=== PATIENT | male | born 1960 | race Caucasian/White ===

== ENCOUNTER 2016-11-09 18:48 | Inpatient (IN) | payer OTHER ==
[~2016-11-09] VITALS: Ht 180.3 cm; Wt 87.5 kg
[2016-11-09] MEDS ORDERED: SODIUM CHLORIDE FLUSH 10ML SYR IVF ONE (19:30)
[2016-11-09 19:37] LABS: ASPARTATE AMINO TRANSFERASE 20 U/L (15-37); BLOOD UREA NITROGEN 31 mg/dL (7-18)
[2016-11-09 19:52] LABS: IS PT STATUS REG ER OR PRE ER? YES
[2016-11-09] MEDS ORDERED: HEPARIN 5,000 UNITS/ML, 1ML IV ONE (20:30)
[2016-11-09] MEDS ORDERED: HEPARIN 25,000 UNITS/500ML PMX 500 ML IV PRN (20:30)
[2016-11-09] MEDS ORDERED: HEPARIN 5,000 UNITS/ML, 1ML IV PRN (20:30)
[2016-11-09] MEDS ORDERED: HEPARIN 5,000 UNITS/ML, 1ML ONE (20:54)
[2016-11-09] MEDS ORDERED: HEPARIN 25,000 UNITS/500ML PMX 500 ML ONE (20:55)
[2016-11-09] MEDS ORDERED: LISI1TAB3 PO (21:08)
[2016-11-09] MEDS ORDERED: fentanyl patch TD (21:08)
[2016-11-09] MEDS ORDERED: ONDA-39 PO (21:08)
[2016-11-09] MEDS ORDERED: AMLO5TAB2 PO (21:08)
[2016-11-09] MEDS ORDERED: DEXA2TAB PO (21:08)
[2016-11-09] MEDS ORDERED: LACT1CAP35 PO (21:08)
[2016-11-09] MEDS ORDERED: NAPR500T3 PO ×2 (21:08)
[2016-11-09] MEDS ORDERED: POLY17PO5 PO (21:08)
[2016-11-09] MEDS ORDERED: HYDR-882 PO (21:08)
[2016-11-09] MEDS ORDERED: [UNRECOGNIZED DRUG - OTHER] PO (21:08)
[2016-11-09] MEDS ORDERED: HEPARIN wt. based STROKE protocol MC PRN (21:30)
[2016-11-09] MEDS: ONDANSETRON 4 MG TABLET PO SCH (21:30)
[2016-11-09] MEDS: FENTANYL 25 MCG PATCH TD SCH (21:30)
[2016-11-09] MEDS: FENTANYL REMOVE PATCH NOTE XX SCH (23:00)
[2016-11-09] MEDS: DEXAMETHASONE 1 MG TABLET PO SCH (23:37)
[2016-11-10 02:00] VITALS: BP 121/74
[2016-11-10 02:02] VITALS: BP 130/70
[2016-11-10 03:32] LABS: BLOOD UREA NITROGEN 29 mg/dL (7-18)
[2016-11-10] MEDS: ONDANSETRON 4 MG TABLET PO SCH ×4 (06:00→20:42)
[2016-11-10 06:58] VITALS: BP 119/69
[2016-11-10] MEDS: POLYETHYLENE GLYCOL 17 GM PACKET PO SCH ×2 (08:28→20:42)
[2016-11-10] MEDS: AMLODIPINE 5 MG TABLET PO SCH (08:28)
[2016-11-10] MEDS: LACTOBACILLUS CHEW TABLET PO SCH (08:28)
[2016-11-10] MEDS: DEXAMETHASONE 1 MG TABLET PO SCH ×2 (08:28→20:42)
[2016-11-10 16:15] VITALS: BP 116/70
[2016-11-10 20:00] VITALS: BP 116/73
[2016-11-10] MEDS: HEPARIN 25,000 UNITS/500ML PMX 500 ML IV PRN (20:41)
[2016-11-10] MEDS: FAMOTIDINE 20 MG TABLET PO SCH (20:42)
[2016-11-11 02:00] VITALS: BP 148/86
[2016-11-11] MEDS: ONDANSETRON 4 MG TABLET PO SCH ×4 (06:00→20:31)
[2016-11-11 07:02] LABS: ASPARTATE AMINO TRANSFERASE 16 U/L (15-37); BLOOD UREA NITROGEN 22 mg/dL (7-18)
[2016-11-11 07:05] VITALS: BP 131/80
[2016-11-11] MEDS: AMLODIPINE 5 MG TABLET PO SCH (09:13)
[2016-11-11] MEDS: DEXAMETHASONE 1 MG TABLET PO SCH ×2 (09:13→20:30)
[2016-11-11] MEDS: POLYETHYLENE GLYCOL 17 GM PACKET PO SCH ×2 (09:13→20:30)
[2016-11-11] MEDS: LACTOBACILLUS CHEW TABLET PO SCH (09:13)
[2016-11-11 12:14] VITALS: BP 119/73
[2016-11-11] MEDS: HEPARIN 25,000 UNITS/500ML PMX 500 ML IV PRN (15:41)
[2016-11-11 20:00] VITALS: BP 131/76
[2016-11-11] MEDS: FAMOTIDINE 20 MG TABLET PO SCH (20:31)
[2016-11-12 02:00] VITALS: BP 148/84
[2016-11-12 02:29] LABS: BLOOD UREA NITROGEN 25 mg/dL (7-18)
[2016-11-12] MEDS: ONDANSETRON 4 MG TABLET PO SCH ×3 (06:00→16:00)
[2016-11-12 06:25] VITALS: BP 120/82
[2016-11-12] MEDS: HEPARIN 25,000 UNITS/500ML PMX 500 ML IV PRN (07:51)
[2016-11-12] MEDS: POLYETHYLENE GLYCOL 17 GM PACKET PO SCH (08:08)
[2016-11-12] MEDS: FENTANYL REMOVE PATCH NOTE XX SCH (08:08)
[2016-11-12] MEDS: FENTANYL 25 MCG PATCH TD SCH (08:09)
[2016-11-12] MEDS: AMLODIPINE 5 MG TABLET PO SCH (08:09)
[2016-11-12] MEDS: LACTOBACILLUS CHEW TABLET PO SCH (08:09)
[2016-11-12] MEDS: DEXAMETHASONE 1 MG TABLET PO SCH (08:09)
[2016-11-12 12:05] VITALS: BP 117/79
[2016-11-12] MEDS ORDERED: ENOXAPARIN 80 MG/0.8 ML SQ SCH (17:00)
[2016-11-12] MEDS ORDERED: ENOX80SY4 SQ (17:41)
== END 2016-11-12 18:45 | disposition home or self-care (01) | DRG 175 ==
LOC: ED 21:35 → EDIP 22:10 → 4WST 22:22
PROVIDERS: ADMIT Internal Medicine; ATTEND Internal Medicine
DX: I26.99 Other pulmonary embolism without acute cor pulmonale (principal); E43 Unspecified severe protein-calorie malnutrition; C34.32 Malignant neoplasm of lower lobe, left bronchus or lung; C78.7 Secondary malignant neoplasm of liver and intrahepatic bile duct; C79.31 Secondary malignant neoplasm of brain; C79.51 Secondary malignant neoplasm of bone; D68.69 Other thrombophilia; E87.1 Hypo-osmolality and hyponatremia; I82.431 Acute embolism and thrombosis of right popliteal vein; I82.432 Acute embolism and thrombosis of left popliteal vein; C78.89 Secondary malignant neoplasm of other digestive organs; D63.8 Anemia in other chronic diseases classified elsewhere; R74.8 Abnormal levels of other serum enzymes; D69.6 Thrombocytopenia, unspecified; D72.829 Elevated white blood cell count, unspecified; I10 Essential (primary) hypertension; I35.1 Nonrheumatic aortic (valve) insufficiency; I77.819 Aortic ectasia, unspecified site; Z66 Do not resuscitate; Z80.1 Family history of malignant neoplasm of trachea, bronchus and lung; Z80.8 Family history of malignant neoplasm of other organs or systems; Z68.26 Body mass index [BMI] 26.0-26.9, adult; Z92.3 Personal history of irradiation; Z88.5 Allergy status to narcotic agent; Z79.899 Other long term (current) drug therapy
CPT/HCPCS: 36415; 70450; 71010; 71275; 80048; 80053; 84484; 85025; 85520; 85610; 93005; 93306; 93970; 96365; 96376; J1644; J1650

== ENCOUNTER 2017-09-21 12:34 | Inpatient (IN) | payer OTHER ==
[~2017-09-21] VITALS: Ht 182.9 cm; Wt 99.8 kg
[2017-09-21] VITALS (7 sets, daily range): BP systolic 105–124; BP diastolic 66–80
[~2017-09-21 12:34] MED LIST: AMLO5TAB2 PO; DEXA2TAB PO; ENOX80SY4 SQ; HYDR-882 PO; LACT1CAP35 PO; LEVO750T26 PO; LISI1TAB3 PO; NAPR-685 PO; ONDA4TAB12 PO; POLY17PO5 PO; [UNRECOGNIZED DRUG - OTHER] PO; fentanyl patch TD
[2017-09-21 13:25] LABS: MEAN CORPUSCULAR HEMOGLOBIN 27.3 pg (27.5-34.5); MEAN CORPUSCULAR HGB CONC 32.9 g/dL (33.2-36.2); MEAN CORPUSCULAR VOLUME 82.9 fL (81-97); MEAN PLATELET VOLUME 7.9 fL (7.4-10.4); PLATELET COUNT 293 x10^3/uL (130-400); RED BLOOD COUNT 2.24 x10^6/uL (4.38-5.82); RED CELL DISTRIBUTION WIDTH 22.5 % (9.4-14.8)
[2017-09-21 13:28] LABS: INTERNATIONAL NORMALIZED RATIO 1.3 (0.93-1.1); PROTHROMBIN TIME 13.4 Seconds (9.6-11.5)
[2017-09-21] MEDS ORDERED: SODIUM CHLORIDE FLUSH 10ML SYR IVF ONE (13:30)
[2017-09-21] MEDS ORDERED: SODIUM CHLORIDE 0.9% 1,000ML IVBOLUS ONE (13:30)
[2017-09-21 13:31] LABS: ALANINE AMINOTRANSFERASE 16 U/L (12-78); ALBUMIN 1.7 g/dL (3.4-5.0); ANION GAP 7 mmol/L (5-15); CALCIUM 7.1 mg/dL (8.5-10.1); CHLORIDE 108 mmol/L (98-107); CREATININE 1.05 mg/dL (0.7-1.3)
[2017-09-21 13:36] LABS: ALKALINE PHOSPHATASE 123 U/L (45-117); BILIRUBIN,TOTAL 0.3 mg/dL (0.2-1.0); TOTAL PROTEIN 6.3 g/dL (6.4-8.2); TROPONIN I < 0.015 ng/mL (0.000-0.045)
[2017-09-21 13:57] LABS: MD YES
[2017-09-21 13:59] LABS: BAND#(MANUAL) 0.99 x10^3/uL; BANDS%(MANUAL) 7 % (0-7); LYMPH#(MANUAL) 0.28 x10^3/uL (1-3.4); LYMPHS% (MANUAL) 2 % (22-44); MONOS#(MANUAL) 0.14 x10^3/uL (0.3-2.7); MONOS% (MANUAL) 1 % (2-9); SEG#(MANUAL) 12.69 x10^3/uL (1.8-6.8); SEGS% (MANUAL) 90 % (42-75)
[2017-09-21 14:01] LABS: ACANTHOCYTES 1+; ANISOCYTOSIS 1+; OVALOCYTES 1+; POLYCHROMASIA 1+; SPHEROCYTES 1+
[2017-09-21 14:02] LABS: <PLATELET ESTIMATE> ADEQUATE; <PLT MORPHOLOGY> NORMAL PLT MORPH; SCHISTOCYTES 1+; TOXIC GRAN 1+
[2017-09-21] MEDS ORDERED: BISACODYL 10 MG SUPP PR PRN (15:00)
[2017-09-21] MEDS ORDERED: ONDANSETRON 2MG/ML, 2ML IVPB PRN (15:00)
[2017-09-21] MEDS ORDERED: PHARMACY MAY ADJ FOR RENAL FX MC PRN (15:00)
[2017-09-21] MEDS ORDERED: FAMOTIDINE 20 MG/2 ML IV SCH (15:00)
[2017-09-21] MEDS ORDERED: DOCUSATE 100 MG CAPSULE PO PRN (15:00)
[2017-09-21] MEDS ORDERED: AZITHROMYCIN 500 MG in SODIUM CHLORIDE 0.9% 250 ML IV SCH (15:00)
[2017-09-21] MEDS ORDERED: GUAIFENESIN/DM 200-20MG, 10ML UDC PO PRN (15:00)
[2017-09-21] MEDS ORDERED: TEMAZEPAM 15 MG CAPSULE PO PRN (15:00)
[2017-09-21] MEDS ORDERED: SENNA/DOCUSATE TABLET PO PRN (15:00)
[2017-09-21] MEDS ORDERED: ALPR0.5T6 PO (16:08)
[2017-09-21] MEDS ORDERED: APIX5TAB PO (16:10)
[2017-09-21] MEDS ORDERED: CALC-545 PO (16:10)
[2017-09-21] MEDS ORDERED: HYDR-3241 PO (16:12)
[2017-09-21 20:12] LABS: MICROSCOPIC NOT IND
[2017-09-21 20:14] LABS: CULTURE INDICATED? NO
[2017-09-21] MEDS: SODIUM CHLORIDE 0.9% 1,000 ML IV SCH (20:31)
[2017-09-21] MEDS: CEFTRIAXONE PMX 1GM/50ML 50 ML IVPB SCH (20:31)
[2017-09-21] MEDS: APIXABAN 5 MG TABLET PO SCH (21:07)
[2017-09-22 01:09] VITALS: BP 104/66
[2017-09-22 01:45] VITALS: BP 103/63
[2017-09-22 05:09] LABS: ALBUMIN 1.6 g/dL (3.4-5.0); ANION GAP 7 mmol/L (5-15); CHLORIDE 110 mmol/L (98-107)
[2017-09-22 05:14] LABS: ALANINE AMINOTRANSFERASE 13 U/L (12-78); ALKALINE PHOSPHATASE 121 U/L (45-117); BILIRUBIN,TOTAL 0.4 mg/dL (0.2-1.0); CREATININE 0.83 mg/dL (0.7-1.3); TOTAL PROTEIN 6.3 g/dL (6.4-8.2)
[2017-09-22 05:16] LABS: MEAN CORPUSCULAR HGB CONC 33.4 g/dL (33.2-36.2); MEAN CORPUSCULAR VOLUME 83.8 fL (81-97); MEAN PLATELET VOLUME 7.8 fL (7.4-10.4); PLATELET COUNT 291 x10^3/uL (130-400); RED BLOOD COUNT 2.77 x10^6/uL (4.38-5.82); RED CELL DISTRIBUTION WIDTH 20.6 % (9.4-14.8)
[2017-09-22 05:49] LABS: MD YES
[2017-09-22 05:51] LABS: ANISOCYTOSIS 1+; BAND#(MANUAL) 0.91 x10^3/uL; BANDS%(MANUAL) 6 % (0-7); EOS#(MANUAL) 0.45 x10^3/uL (0.0-0.4); EOS% (MANUAL) 3 % (1-7); LYMPH#(MANUAL) 0.76 x10^3/uL (1-3.4); LYMPHS% (MANUAL) 5 % (22-44); METAMYELOCYTES# (MANUAL) 0.15 x10^3/uL (0-0); METAMYELOCYTES% (MANUAL) 1 % (0-1); MONOS#(MANUAL) 0.45 x10^3/uL (0.3-2.7); MONOS% (MANUAL) 3 % (2-9); MYELOCYTES# (MANUAL) 0.15 x10^3/uL (0-0); MYELOCYTES% (MANUAL) 1 % (0-0); NRBC % (MANUAL) 1 % (0-1); POLYCHROMASIA 1+; SEG#(MANUAL) 12.23 x10^3/uL (1.8-6.8); SEGS% (MANUAL) 81 % (42-75)
[2017-09-22 05:52] LABS: ACANTHOCYTES 1+; OVALOCYTES 1+; SCHISTOCYTES 1+; SPHEROCYTES 1+; TOXIC GRAN 1+
[2017-09-22 05:54] LABS: <PLATELET ESTIMATE> ADEQUATE; <PLT MORPHOLOGY> NORMAL PLT MORPH
[2017-09-22 05:55] LABS: ECHINOCYTES 1+
[2017-09-22] MEDS: SODIUM CHLORIDE 0.9% 1,000 ML IV SCH ×3 (06:48→18:06)
[2017-09-22 07:10] VITALS: BP 118/72
[2017-09-22] MEDS: FAMOTIDINE 20 MG TABLET PO SCH ×2 (08:06→20:54)
[2017-09-22] MEDS: APIXABAN 5 MG TABLET PO SCH (08:06)
[2017-09-22 14:46] VITALS: BP 110/70
[2017-09-22 19:03] LABS: OCCULT BLOOD NEGATIVE (NEGATIVE)
[2017-09-22 19:47] VITALS: BP 103/62
[2017-09-22] MEDS: CEFTRIAXONE PMX 1GM/50ML 50 ML IVPB SCH (20:54)
[2017-09-22] MEDS: AZITHROMYCIN 500 MG TABLET PO SCH (20:54)
[2017-09-22] MEDS ORDERED: APIXABAN 5 MG TABLET PO SCH (21:00)
[2017-09-23] VITALS (7 sets, daily range): BP systolic 100–114; BP diastolic 63–76
[2017-09-23] MEDS: ACETAMINOPHEN 325 MG TABLET PO PRN ×2 (02:04→20:35)
[2017-09-23 04:40] LABS: MEAN CORPUSCULAR HGB CONC 33.6 g/dL (33.2-36.2); MEAN CORPUSCULAR VOLUME 83.5 fL (81-97); MEAN PLATELET VOLUME 7.6 fL (7.4-10.4); PLATELET COUNT 327 x10^3/uL (130-400); RED BLOOD COUNT 2.68 x10^6/uL (4.38-5.82); RED CELL DISTRIBUTION WIDTH 20.3 % (9.4-14.8)
[2017-09-23 04:42] LABS: ANION GAP 8 mmol/L (5-15); CHLORIDE 110 mmol/L (98-107)
[2017-09-23 04:45] LABS: CREATININE 0.74 mg/dL (0.7-1.3)
[2017-09-23 04:52] LABS: ACANTHOCYTES 1+; ANISOCYTOSIS 1+; BASOPHILS % (AUTO) 0 % (0-1); ECHINOCYTES 1+; EOSINOPHILS # (AUTO) 0.02 x10^3/uL (0-0.4); EOSINOPHILS % (AUTO) 0 % (1-7); LYMPHOCYTES # (AUTO) 0.37 x10^3/uL (1-3.4); LYMPHOCYTES % (AUTO) 2 % (22-44); MD MORPH REVIEW ONLY; MONOCYTES # (AUTO) 0.71 x10^3/uL (0.2-0.8); MONOCYTES % (AUTO) 5 % (2-9); NEUTROPHILS # (AUTO) 14.25 x10^3/uL (1.8-6.8); NEUTROPHILS % (AUTO) 93 % (42-75); OVALOCYTES 1+; POLYCHROMASIA 1+; SCHISTOCYTES 1+; SPHEROCYTES 1+
[2017-09-23 04:53] LABS: <PLATELET ESTIMATE> ADEQUATE; <PLT MORPHOLOGY> NORMAL PLT MORPH; TOXIC GRAN 1+
[2017-09-23] MEDS ORDERED: FENTANYL REMOVE PATCH NOTE XX SCH (08:59)
[2017-09-23] MEDS ORDERED: FENTANYL 25 MCG PATCH TD SCH (09:00)
[2017-09-23] MEDS: SODIUM CHLORIDE 0.9% 1,000 ML IV SCH (09:03)
[2017-09-23] MEDS: AZITHROMYCIN 500 MG TABLET PO SCH (09:05)
[2017-09-23] MEDS: FAMOTIDINE 20 MG TABLET PO SCH ×2 (09:05→20:26)
[2017-09-23] MEDS: CALCIUM/VITAMIN D3 250-125 TABLET PO SCH ×2 (09:05→20:26)
[2017-09-23] MEDS ORDERED: LEVOFLOXACIN/PMX 750MG/150ML 150 ML IV SCH (17:00)
[2017-09-24] MEDS: SODIUM CHLORIDE 0.9% 1,000 ML IV SCH ×2 (00:38→13:55)
[2017-09-24 01:22] VITALS: BP 99/66
[2017-09-24 04:48] LABS: MEAN CORPUSCULAR HGB CONC 33.1 g/dL (33.2-36.2); MEAN CORPUSCULAR VOLUME 84.6 fL (81-97); MEAN PLATELET VOLUME 7.3 fL (7.4-10.4); PLATELET COUNT 402 x10^3/uL (130-400)
[2017-09-24 04:59] LABS: ALBUMIN 1.7 g/dL (3.4-5.0); ANION GAP 6 mmol/L (5-15); CALCIUM 7.2 mg/dL (8.5-10.1); CHLORIDE 109 mmol/L (98-107); CREATININE 0.75 mg/dL (0.7-1.3)
[2017-09-24 05:45] LABS: MD YES
[2017-09-24 05:46] LABS: BAND#(MANUAL) 0.68 x10^3/uL; BANDS%(MANUAL) 4 % (0-7); LYMPH#(MANUAL) 0.51 x10^3/uL (1-3.4); LYMPHS% (MANUAL) 3 % (22-44); METAMYELOCYTES# (MANUAL) 0.34 x10^3/uL (0-0); METAMYELOCYTES% (MANUAL) 2 % (0-1); MONOS#(MANUAL) 0.51 x10^3/uL (0.3-2.7); MONOS% (MANUAL) 3 % (2-9); SEG#(MANUAL) 14.87 x10^3/uL (1.8-6.8); SEGS% (MANUAL) 88 % (42-75)
[2017-09-24 05:47] LABS: ANISOCYTOSIS 1+; ECHINOCYTES 1+; OVALOCYTES 1+; POLYCHROMASIA 1+
[2017-09-24 05:48] LABS: <PLATELET ESTIMATE> INCREASED; <PLT MORPHOLOGY> NORMAL PLT MORPH; SCHISTOCYTES 1+; SPHEROCYTES 1+
[2017-09-24 05:49] LABS: TOXIC GRAN 1+
[2017-09-24 07:10] VITALS: BP 117/78
[2017-09-24] MEDS: FAMOTIDINE 20 MG TABLET PO SCH (08:32)
[2017-09-24] MEDS: CALCIUM/VITAMIN D3 250-125 TABLET PO SCH (08:32)
[2017-09-24 12:50] VITALS: BP 112/72
[2017-09-24] MEDS ORDERED: LEVO750T6 PO (17:05)
[2017-09-28] MEDS ORDERED: APIXABAN 5 MG TABLET PO SCH (21:00)
== END 2017-09-24 18:12 | disposition home or self-care (01) | DRG 871 ==
LOC: ED 13:53 → EDIP 13:54 → ED 14:19 → 3NW 15:15
PROVIDERS: ADMIT Internal Medicine; ATTEND Internal Medicine
PROC: 30233N1 Transfusion of Nonautologous Red Blood Cells into Peripheral Vein, Percutaneous Approach (ICD-10-PCS; principal; 2017-09-21)
DX: A41.9 Sepsis, unspecified organism (principal); J18.9 Pneumonia, unspecified organism; N17.0 Acute kidney failure with tubular necrosis; E43 Unspecified severe protein-calorie malnutrition; C34.90 Malignant neoplasm of unspecified part of unspecified bronchus or lung; E83.51 Hypocalcemia; D64.9 Anemia, unspecified; I10 Essential (primary) hypertension; Z66 Do not resuscitate; I35.1 Nonrheumatic aortic (valve) insufficiency; Z79.01 Long term (current) use of anticoagulants; Z80.8 Family history of malignant neoplasm of other organs or systems; Z86.711 Personal history of pulmonary embolism; Z86.718 Personal history of other venous thrombosis and embolism; Z85.118 Personal history of other malignant neoplasm of bronchus and lung; Z68.29 Body mass index [BMI] 29.0-29.9, adult; Z88.5 Allergy status to narcotic agent
CPT/HCPCS: 36415; 36430; 71045; 80048; 80053; 81003; 82040; 82272; 83605; 83880; 84443; 84484; 85025; 85610; 85730; 86850; 86900; 86923; 87040; 93005; 96360; J0456; J0696; J1956; J7030; J7050; P9016; S0028